=== PATIENT | male | born 1985 | race Caucasian/White ===

== ENCOUNTER 2016-08-14 23:41 | Emergency (ER) | payer SELFPAY ==
[~2016-08-14] VITALS: Ht 177.8 cm; Wt 72.6 kg
[2016-08-14 23:51] VITALS: BP 117/65
--- NOTE | 2016-08-15 03:07 | NUR ---
PATIENT LEFT WITHOUT BEING SEEN BY DR. BATISTA. NO FURTHER CARE PROVIDED FOR PATIENT.
== END 2016-08-15 03:07 | disposition left against medical advice (07) ==
LOC: MED 23:41
DX: S01.91XA Laceration without foreign body of unspecified part of head, initial encounter (principal); Z53.21 Procedure and treatment not carried out due to patient leaving prior to being seen by health care provider; Y04.2XXA Assault by strike against or bumped into by another person, initial encounter; Y93.89 Activity, other specified; Y92.89 Other specified places as the place of occurrence of the external cause; Y99.8 Other external cause status